=== PATIENT | male | born 1990 | race Caucasian/White ===

== ENCOUNTER 2022-12-01 21:20 | Emergency (ER) | payer OTHER, SELFPAY ==
[2022-12-01] VITALS (8 sets, daily range): BP systolic 140–150; BP diastolic 79–91; PULSE 52–64; RESP 12–20; TEMP 36.4–36.5; O2SAT 100
--- NOTE | 2022-12-01 21:15 | RT.EKG_ITS ---
APPROVED REPORT Exam: Resting ECG Reason for Exam: chest pain Patient Location: E HR:59 bpm ECG Measurements Heart Rate 59 AXIS OK 162 P 46 QRSd 83 QRS 67 QT 398 T 33 QTc 393 Conclusion Sinus bradycardia...rate< 60
--- NOTE | 2022-12-01 21:30 | DI.RAD_ITS ---
Exam(s) XR PORTABLE CHEST AP EXAM: XR PORTABLE CHEST AP CLINICAL HISTORY: palpitations TECHNIQUE: 2D digital imaging was performed of the chest. One image was obtained. An AP view was ob tained. COMPARISON: No exams were available for comparison FINDINGS: MEDIASTINUM: Normal. HEART: Normal. PULMONARY VASCULATURE: Unremarkable LUNGS: There is a 6 mm nodule projected between the left 7th and 8th ribs posteriorly. This may repre sent a pulmonary nodule. The lungs are otherwise clear. PLEURAL SPACE: No pleural effusion or pneumothorax. BONE:Within normal limits for the patient's age. OTHER FINDINGS:Normal. IMPRESSION: 1. No acute pulmonary findings. 2. 6 mm left mid lung nodule. CT scan of the chest should be considered for further evaluation. Unexpected findings DATA REPOSITORY: RADIATION DOSE DELIVERED:
--- NOTE | 2022-12-01 21:34 | ED.GENADUL_ITS ---
Discharge Plan Disposition Patient Disposition: Home Condition: Good Discharge Details Chief Complaint: Palpitatns Clinical Impression: Atrial extrasystole, Intermittent palpitations Primary Care Provider: Unknown,Unknown ED Provider: Jhon Alfredo Home Meds and New Rx's Prescriptions: No Action No Known Home Meds Discharge Instructions Instructions: Heart Palpitations (ED) Discharge Data Discharge Physician: Jhon Alfredo Medical Decision Making MDM: Summary: Patient presents emergency department stating that he had episodes where he feels extra heartbeat. He is very athletic and his EKG is within normal limits. He had labs done in the emergency department and x-ray which all are normal he also had a [id number] limited echocardiogram which shows no abnormality. Patient might have a PVC that he sometimes hears when he is asleep I have told him that unless he is very symptomatic he should seek attention with his doctor but did not this is something within normal limits. He will be discharged home Data Review Analysis All the data on this patient was reviewed by me including laboratory and imaging studies as well as bedside studies performed by me Independent review of Studies Imaging [id number] ultrasound echocardiogram which shows no abnormality and a chest x-ray that was reviewed by me which was normal Lab: Labs are unremarkable to include troponin Risk Stratification: Patient with very low heart score who has a normal echo and will be sent home fo r follow-up for he has episodes of a extra beat Differential Diagnosis: 1. Extrasystoles 2. Premature atrial contractions 3. Acute coronary syndrome 4. 5. Consultants: Shared disposition: I discussed with the patient and his significant other and agree that he will try to avoid pain attention to this extra heartbeat specially at night and will go home Impression: Lab Data Lab results reviewed: Yes I reviewed the patient's lab results. ECG Data Attestation: I personally reviewed and interpreted this ECG (s) as follows: Prior ECG tracings: not available for review Interpretation: Normal sinus rhythm heart rate of [address]-T changes HPI General Date/Time Provider Initiated Documentation: 12/01/22 21:34 . HPI Narrative: Patient presents to the emergency department complaining of feeling extra beats in his heart present when he goes to sleep. States he exercises and everything and does not feel and then goes to sleep sometimes feels that his heart skips a beat. States has been happening for over a month denies any chest pain Related Data Home Medications Medication Instructions Recorded Confirmed Unknown [No Known Home Meds] 12/01/22 12/01/22 Allergies Allergy/AdvReac Type Severity Reaction Status Date / Time No Known Allergies Allergy Verified 12/01/22 21:28 General Stated Complaint: Palpitatns LUIS EDUARDO: 3 Review of Systems Narrative: Review of Systems: Constitutional: No fevers, chills, sweats Eye: No recent visual problems ENT: No ear pain, nasal congestion, sore throat Respiratory: No shortness of breath, cough Cardiovascular: No Chest pain, palpitations, syncope Gastrointestinal: No nausea, vomiting, diarrhea Genitourinary: No hematuria Edmond/Lymph: Negative for bruising tendency, swollen lymph glands Endocrine: Negative for excessive thirst, excessive hunger Musculoskeletal: No back pain, neck pain, joint pain, muscle pain, decreased range of motion Integumentary: No rash, pruritus, abrasions Neurologic: Alert & oriented X 4 Psychiatric: No anxiety, depression PFSH All Active Problems (Updated 12/01/22 @ 22:38 by Jhon Alfredo MD) Atrial extrasystole (Acute) Intermittent palpitations (Acute) Social History Smoking/Tobacco Use Status: Never Smoking risk assessment performed?: Yes Alcohol Intake: current Alcohol Intake frequency: a few times a week Alcohol type: beer Drug use: Occasionally Substance use type: marijuana Housing: house Do you feel safe at home: Yes Do you feel safe in your relationship?: Yes Exam Narrative Exam Narrative: Exam; vitals signs as reported above normal Constitutional; In no acute distress, afebrile General: cooperative, healthy appearing, comfortable and no acute distress HEENT: Head: normal to inspection, no palpable skull fracture and normocephalic atraumatic Eyes: : appearance normal, both eyes and all related structures EOM intact bilaterally Pupils: PERRL : conjunctiva normal Direct ophthalmoscopy: normal light reflex, normal conjunctiva, normal visual acuity Ears: Normal TM, normal external canal Nose: normal no rhinorreha Neck no JVD, supple non tender Neck: normal visual inspection, full ROM and no lymphadenopathy Chest: normal inspection of the chest Respiratory : normal respiratory effort and able to speak in complete sentences no wheezing no rales Cardio Rate: regular rate, rhythm: regular rhythm normal heart sounds S1 and S2 no murmurs, gallops, or rubs GI : normal to inspection, normal bowel sounds, soft, non tender, non distended, no organomegaly Back/Spine/ no CVA tenderness Thoracic/Lumbar Spine: no tenderness or deformities Skin no rashes or lesions Neuro: patient alert oriented x 4 and no meningeal signs, Cranial Nerves: CN's II-XI intact bilaterally, Cognition: normal cognition, Speech: speech normal, Gait: normal gait, Depp tendon reflexes normal 2+ muscle strength 5/5 bilaterally Extremities, no edema, full range of motion, normal strength Course Vital Signs Vital signs: Vital Signs Temperature 36.5 C 12/01/22 21:23 Pulse 64 12/01/22 21:23 Respiratory Rate 16 12/01/22 21:23 Blood Pressure 150/79 H 12/01/22 21:23 Pulse Oximetry 100 12/01/22 21:23 Temperature 36.5 C 12/01/22 21:23 Temperature Source Tympanic 12/01/22 21:23 Pulse 64 12/01/22 21:23 Respiratory Rate 16 12/01/22 21:23 Respiratory Effort Normal 12/01/22 21:25 Blood Pressure 150/79 H 12/01/22 21:23 Pulse Oximetry 100 12/01/22 21:23 Oxygen Delivery Method Room Air 12/01/22 21:23 Oxygen Flow Rate 0 12/01/22 21:23 POCUS Exam (ED) Limited Cardiac Exam DATE OF EXAM: 12/01/22 TIME OF EXAM: 22:33 PROVIDER THAT PERFORMED THE STUDY: Jhon Alfredo IS THIS A REPEAT EXAM DURING THIS ENCOUNTER: no REASON FOR EXAM: Chest pain VISUALIZED STRUCTURES: Four Chambers, Left atrium, Left ventricle, LVOT, Right atrium, Right ventricle, Aortic valve, Mitral valve, Interventricular septum and IVC VIEW OBTAINED: Apical 4-Chamber, Parasternal long-axis, Parasternal short-axis and Subxiphoid PERTINENT FINDINGS/IMPRESSION: No apparent abnormalities Exam complete PAWSS Have you Been Recently Intoxicated or Drunk Within the Last 30 days?: No Have you Ever Experienced Previous Episodes of Alcohol Withdrawal?: No Have you ever Experienced Withdrawal Seizures?: No Have you ever Experienced Delirium Tremens(DT)s?: No Have you ever undergone Alcohol Rehabilitation Treatment (i.e, inpt ot outpatient treatment programs)?: No Have you ever Experienced Blackouts?: No Have you ever Combined Alcohol with other Downers within the last 90 days?: No Have you ever Combined Alcohol with any other Substance of Abuse during the last 90 days?: No Positive Blood Alcohol level on Presentation? [PCS.BAL]: No Evidence of Increased Autonomic Activity (i.e. HR>120, tremor, sweating, agitation, nausea)?: No Result: 0
[2022-12-01] MEDS: Normal Saline 1,000 ML 1000 ML IV (21:55)
[2022-12-01 22:04] LABS: Abs Immature Grans 0.01 10^3/uL (0.0-0.06); Absolute Basophil Count 0.03 10^3/uL (0.0-0.2); Absolute Eosinophil Count 0.35 10^3/uL (0.0-0.7); Absolute Lymphocyte Count 1.61 10^3/uL (1.2-3.4); Absolute Monocyte Count 0.51 10^3/uL (0.1-0.8); Absolute Neutrophil Count 3.63 10^3/uL (1.2-6.7); Basophils % 0.5; Eosinophils % 5.7; HCT 38.9 % (40.0-50.0); HGB 13.2 g/dL (13.5-17.5); Immature Grans % 0.2; Lymphocytes % 26.2; MCH 31.5 pg (27.0-33.0); MCHC 33.9 % (32.0-36.0); MCV 93 fL (80-95); MPV 10.1 fL (8.0-11.0); Monocytes % 8.3; Neutrophils % 59.1; Platelet Count 214 10^3/uL (130-400); RBC 4.19 10^6/uL (4.36-5.78); RDW 11.9 % (11.8-14.1); RDW-SD 40.5 fL; WBC 6.14 10^3/uL (4.4-10.8)
[2022-12-01 22:26] LABS: ALT 21 U/L (16-63); AST 20 U/L (15-37); Albumin 3.8 g/dL (3.4-5.0); Alkaline Phosphatase 53 U/L (46-116); Anion Gap 6.1 mmol/L (3-11); BUN 19 mg/dL (7-18); Bilirubin, Total 0.3 mg/dL (0.2-1.0); CO2 28.9 mmol/L (21.0-32.0); CREATININE 1.1 mg/dL (0.70-1.30); Calcium 8.4 mg/dL (8.5-10.1); Chloride 103 mmol/L (98-107); Estimated GFR 90.34 (mL/min/1.73m2); Glucose 143 mg/dL (74-106); Potassium 3.7 mmol/L (3.5-5.1); Sodium 138 mmol/L (136-145); Total Protein 6.6 g/dL (6.4-8.2); Troponin I < 50 ng/L (<or=60)
--- NOTE | 2022-12-01 23:08 | DI.VRAD_ITS ---
PROCEDURE INFORMATION: Exam: XR Chest Exam date and time: 12/01/2022 10:40 PM Age: 32 years old Clinical indication: Other: Palpiatations TECHNIQUE: Imaging protocol: Radiologic exam of the chest. Views: 1 view. COMPARISON: No relevant prior studies available. FINDINGS: Lungs: There is no evidence of focal pulmonary consolidation. The pulmonary vasculature is normal. Pleural spaces: There is no evidence of pneumothorax. There are no pleural effusions present. Heart/Mediastinum: The cardiac silhouette is within normal limits. The mediastinum is normal. Bones/joints: The spine, sternum, ribs, and pectoral girdles show no evidence of acute abnormality Soft tissues: There are no soft tissue masses or calcifications. IMPRESSION: No active cardiopulmonary disease. Dictated and Authenticated by: Raúl Seaman MD. Ordering:MICHAELLE Ferreira MD
== END 2022-12-02 01:34 | disposition home or self-care (01) ==
PROVIDERS: Emergency Provider Emergency Medicine Emergency Medical Services
DX: R00.2 Palpitations (principal); R07.9 Chest pain, unspecified; I49.1 Atrial premature depolarization
CPT/HCPCS: 36415; 80053; 93005; 93308; 96360; 99285; 71045; 83735; 84484; 85025; 93010